=== PATIENT | female | born 1965 | race Caucasian/White ===

== ENCOUNTER 2017-01-28 08:16 | Outpatient (CLI) | payer OTHER ==
[2015-06-16 06:38] VITALS: BP 122/68
[2017-01-28 09:22] LABS: eGFR (African) > 60; eGFR (Non-African) > 60
== END 2017-01-28 08:17 ==
LOC: LAB 08:16
PROVIDERS: ATTEND Family Medicine
DX: E11.9 Type 2 diabetes mellitus without complications (principal); F32.9 Major depressive disorder, single episode, unspecified; Z78.0 Asymptomatic menopausal state
CPT/HCPCS: 36415; 80053; 80061; 82043; 83001; 83002; 83036

== ENCOUNTER 2017-02-11 14:46 | Outpatient (CLI) | payer OTHER ==
[2015-06-16 06:38] VITALS: BP 122/68
== END 2017-02-11 14:47 ==
LOC: POD 14:46
PROVIDERS: ATTEND Podiatrist
DX: E11.42 Type 2 diabetes mellitus with diabetic polyneuropathy (principal); G57.51 Tarsal tunnel syndrome, right lower limb
CPT/HCPCS: 99213

== ENCOUNTER 2017-03-11 09:58 | Emergency (ER) | payer OTHER ==
[2017-03-11] MEDS ORDERED: KETOROLAC TROMETHAMINE 60 MG/2 ML VIAL IM ONE (10:36)
--- NOTE | 2017-03-11 10:38 | ED Physician Documentation ---
Lower Extremity Injury - HISTORIAN Historian: patient - HPI Stated Complaint: knee pain Chief Complaint: Lower Extremity Injury Onset: hours Where: home Severity: moderate Context: other (Started to have some pain and mild swelling in the right knee. Stated about 3 weeks ago. This AM when twisting to the right she felt her knee buckle and give way, since that time has had pain with weight bearing. ) Associated Symptoms:: swelling, popping sensation Modifying Factors:: pain on movement - ROS CONST: denies: fever, chills CVS/RESP: none - PAST HX Past History: diabetes Type 2, other (gluacoma) Immunizations: referred to PCP Allergies/Adverse Reactions: Allergies Allergy/AdvReac Type Severity Reaction Status Date / Time No Known Allergies Allergy Verified 03/11/17 10:17 - SOCIAL HX Smoking History: less than 1 pack/day (1/2 ppd) Alcohol Use: rarely Drug Use: none - FAMILY HX Family History: no significant history - VITAL SIGNS Vital Signs: Vital Signs Temp Pulse Resp BP Pulse Ox 91 H 18 123/58 97 03/11/17 10:11 03/11/17 10:11 03/11/17 10:11 03/11/17 10:11 - REVIEWED ASSESSMENTS Nursing Assessment Reviewed: Yes Vitals Reviewed: Yes ED Results Lab/Radiology - Radiology Radiology Impressions: Report Submission Date: Mar 11, 2017 10:57:15 AM CDT Patient Study Name: SJ HALE Date: Mar 11, 2017 10:41:38 AM CDT Modality Type: CR Gender: F Description: LOWER EXTREMITY : 67 Institution: [facility] Physician: JAVON QIU - LEFTY Right knee 3 views History: Pain after twisting injury. Popping sensation. Findings: A large suprapatellar joint effusion is present without fracture, dislocation, arthropathy, or focal bone lesion. - Orders Orders: ED Orders Category Date Time Status Knee Immobilizer 1T Care 03/11/17 11:14 Ordered KNEE 3 VIEWS [RAD] Stat Exams 03/11/17 Ordered Ketorolac Tromethamine [Toradol] Med 03/11/17 10:36 Discontinued 60 mg IM NOW ONE Lower Extremities Injury Phy - Physical Exam General Appearance: no acute distress Hips: bilateral hip: non-tender, normal inspection, normal range of motion, no evidence of injury Legs: bilateral: non-tender, normal inspection, normal range of motion, no evidence of injury Knees: right: joint effusion (mild), pain, swelling (mild), left: non-tender, normal inspection, normal range of motion, no evidence of injury, N/A: deformity (none), ecchymosis (none) Ankle: bilateral: non-tender, normal inspection, normal range of motion, no evidence of injury Ligaments: No: pain on anterior drawer, laxity on anterior drawer, pain on posterior drawer, laxity on posterior drawe, pain on medial stress, laxity on medial stress, pain on lateral stress, laxity on lateral stress Gait: limited by pain Neuro/Vascular/Tendon: no vascular compromise Resp/CVS: chest non-tender, breath sounds nml, heart sounds nml, no resp. distress, lungs clear Discharge Clincal Impression: Knee strain Qualifiers: Encounter type: initial encounter Laterality: right Qualified Code(s): S86.911A - Strain of unspecified muscle(s) and tendon(s) at lower leg level, right leg, initial encounter Referrals: Javon Qiu MD [Primary Care Provider] - 2 Days Additional Instructions: Wear knee immobilizer for the next several days. Take some Ibuprofen (200mg tabs , 3 tabs three times a day) or Aleve (220mg tabs, 2 tabs twice a day). If you are still having a lot of pain in 5-7 days to follow-up with your primary care provider for further evaluation. Condition: Stable Disposition: 01 HOME, SELF-CARE Decision to Admit: NO Date of Decison to Admit: 03/11/17 Decision Time: 11:15
[2017-03-11 11:34] VITALS: BP 120/64
--- NOTE | 2017-03-11 14:32 | Diagnostic Imaging Report ---
GONZALO COCHRAN [facility] [address] [facility] [address] [address] Report Submission Date: Mar 11, 2017 10:57:15 AM CDT Patient Study Name: SJ HALE Date: Mar 11, 2017 10:41:38 AM CDT Modality Type: CR Gender: F Description: LOWER EXTREMITY : 67 Institution: [facility] Physician: GONZALO COCHRAN Right knee 3 views History: Pain after twisting injury. Popping sensation. Findings: A large suprapatellar joint effusion is present without fracture, dislocation, arthropathy, or focal bone lesion. Electronically signed on Mar 11, 2017 10:57:15 AM CDT by: Vlad KEVIN
== END 2017-03-11 11:32 | disposition home or self-care (01) ==
LOC: ED 09:58
DX: S86.911A Strain of unspecified muscle(s) and tendon(s) at lower leg level, right leg, initial encounter (principal); W19.XXXA Unspecified fall, initial encounter; Y93.9 Activity, unspecified; Y99.9 Unspecified external cause status
CPT/HCPCS: 73562; J1885; L1830; 96372; 99282; 99283

== ENCOUNTER 2018-01-02 09:11 | Outpatient (CLI) | payer OTHER ==
[2018-01-02 10:06] LABS: eGFR (African) > 60; eGFR (Non-African) > 60
== END 2018-01-02 09:20 ==
LOC: LAB 09:11
PROVIDERS: ATTEND Physician Assistant
DX: E11.9 Type 2 diabetes mellitus without complications (principal); E78.2 Mixed hyperlipidemia
CPT/HCPCS: 36415; 80053; 80061; 83036

== ENCOUNTER 2019-07-18 08:22 | Emergency (ER) | payer OTHER ==
--- NOTE | 2019-07-18 09:17 | ED Physician Documentation ---
General Adult - HISTORIAN Historian: patient - HPI Stated Complaint: "My blood sugars seem to be out of control" Chief Complaint: General Adult Onset: days ago (2) Timing: better Severity: mild Further Comments: yes (She is here today because her blood sugar was 400 yesterday - she did not have any symptoms and she checked and it was 400. She states her work would not let her leave and this am she checked and it was 186 and before coming over 210 and she did in last two days take her metformin due to this high blood sugar although she states she is not having any symptoms of high blood sugar. She was supposed to be on metformin but has not taken the medication in a "while" (according to chart last visit with her PCP was in 2011)) - ROS CONST: no problems - PAST HX Past History: other (DM 2 ) Immunizations: UTD Allergies/Adverse Reactions: Allergies Allergy/AdvReac Type Severity Reaction Status Date / Time No Known Allergies Allergy Verified 07/18/19 08:59 Home Medications: Ambulatory Orders Medication Instructions Recorded NK 08/24/18 - SOCIAL HX Smoking History: non-smoker Alcohol Use: none Drug Use: none - FAMILY HX Family History: No - VITAL SIGNS Vital Signs: Vital Signs Temp Pulse Resp BP Pulse Ox 97.6 F 88 18 134/68 99 07/18/19 08:25 07/18/19 08:25 07/18/19 08:25 07/18/19 08:25 07/18/19 08:25 - REVIEWED ASSESSMENTS Nursing Assessment Reviewed: Yes Vitals Reviewed: Yes Progress - Progress Progress: I had to ask the pt her concern and she was here due to the blood sugar number yesterday. Does maintain she has no symptoms of high sugar and she has the medication at home. We did discuss the metformin will not work over night and she is aware. She also would like a work note. DG General Adult Physical Exam - PHYSICAL EXAM GENERAL APPEARANCE: no distress EENT: eye inspection normal, ENT inspection normal, no signs of dehydration NECK: normal inspection RESPIRATORY: no resp distress CVS: reg rate & rhythm, heart sounds normal ABDOMEN: soft, no distension SKIN: warm/dry, normal color EXTREMITIES: non-tender, normal range of motion, no evidence of injury NEURO: oriented X3 Discharge Clincal Impression: High blood sugar Referrals: Javon Qiu MD [Primary Care Provider] - 2 Days Comments: 1. Take you meds 2. Follow up with Dr Qiu 3. Return to ER for any concerning symptoms Condition: Stable Disposition: 01 HOME, SELF-CARE Decision to Admit: NO Date of Decison to Admit: 07/18/19 Decision Time: 09:19
[2019-07-18 09:33] VITALS: BP 141/74
== END 2019-07-18 09:30 | disposition home or self-care (01) ==
LOC: ED 08:22
DX: E11.65 Type 2 diabetes mellitus with hyperglycemia (principal)
CPT/HCPCS: 99281; 99282